=== PATIENT | male | born 1975 | race Caucasian/White ===

== ENCOUNTER 2022-11-01 11:56 | Emergency (ER) | payer OTHER, SELFPAY ==
--- NOTE | ~2022-11-01 | XR_ITS ---
EXAMINATION: XR chest 1V portable DATE: 11/01/2022 12:45 INDICATION: Cough. TECHNIQUE: A single frontal view of the chest was obtained. COMPARISON: Chest 2 views 01/06/2018 FINDINGS: The chest demonstrates clear lungs without pneumonia, pleural effusion, or pneumothorax. Th e heart size is normal. There is an electronic device in right chest with electrode in right neck. IMPRESSION: 1. No acute cardiopulmonary disease. Reviewed, dictated and finalized at location A.
[2022-11-01 12:08] VITALS: BP 139/96; PULSE 88; RESP 15; TEMP 37.1; O2SAT 96
--- NOTE | 2022-11-01 12:16 | ECG_ITS ---
Measurements Intervals [place] Rate: 91 P: 28 WA: 164 QRS: -2 QRSD: 82 T: 30 QT: 347 QTc: 427 Interpretive Statements SINUS RHYTHM WITH SINUS ARRHYTHMIA NONSPECIFIC T-WAVE ABNORMALITY ABNORMAL ECG NO PREVIOUS ECG AVAILABLE FOR COMPARISON Electronically Signed On 11-01-2022 13:54:22 CDT by Daryl York M.D.
--- NOTE | 2022-11-01 12:25 | ED.URI ---
HPI - URI/Sore Throat General Chief Complaint: Upper Respiratory Infection Stated Complaint: cough/congestion/WATERS/ dyspnea Time Seen by Provider: 11/01/22 12:06 Source: patient, RN notes reviewed and old records reviewed Mode of arrival: ambulatory Limitations: no limitations History of Present Illness HPI Narrative: This is a 47 year old male with history of PTSD, and sleep apnea who presents for evaluation of viral symptoms. He started feeling sick on Sunday. He reports developing mild cough, body ache, congestion and chills. He developed nausea, vomiting and headache yesterday. His last episode of emesis was 3 am this morning, and he has been able to drink water afterwards. He denies diarrhea, abdominal pain or fever. He has pain all over and chest pain only with coughing. He states his cough is getting worse. He is taking mucinex, tesselon perles and tylenol for his symptoms, and his last dose of tylenol was at 7 am. [facility] of [facility]. Related Data Allergies Allergy/AdvReac Type Severity Reaction Status Date / Time No Known Allergies Allergy Unknown Verified 11/01/22 12:30 Review of Systems Constitutional: Constitutional: Reports chills and Denies weakness ENT: Reports otalgia, Reports nasal congestion and Reports sinus pain Cardiovascular: Cardiovascular: Denies syncope, Denies rapid heart rate, Denies irregular heart rhythm, Denies leg edema and Reports dyspnea Respiratory: Respiratory: Reports chest congestion, Reports cough, Denies hemoptysis, Reports excessive phlegm production and Denies dyspnea Gastrointestinal: Gastrointestinal: Denies abdominal pain, Denies hematochezia, Denies diarrhea, Reports nausea and Reports vomiting Genitourinary: Genitourinary: Denies hematuria, Denies dysuria, Denies penile discharge and Denies testicular pain Musculoskeletal: Musculoskeletal: Reports myalgias, Denies joint swelling, Denies loss of height and Denies muscle weakness Neurologic: Denies syncope, Reports headache(s), Denies focal weakness and Denies weakness PMFSH Past Medical History Medical History (Updated 11/01/22 @ 13:57 by Camilla Gold MD) PTSD (post-traumatic stress disorder) Sleep apnea Social History Social History (Updated 11/01/22 @ 12:32 by Camilla Gold MD) Smoking status: Former smoker Exam Const: General: alert and ill appearing; No no acute distress, confusion or diaphoretic Nutritional Appearance: well nourished Orientation/consciousness: patient oriented x3 Limitations: no limitations HENMT: Head: normal to inspection Ears: external ears normal and TM's normal bilaterally Face and sinus: normal facial exam Mouth: Yes Normal oral and palatal mucosa present Teeth and gingiva: dentition normal and abnormal tooth and associated gingiva Throat: posterior oropharynx normal and uvula midline Eyes: EOM: EOMs intact bilaterally Chest: Chest palpation & inspection: normal inspection of the chest Resp: Effort & Inspection: normal respiratory effort Auscultation: clear to auscultation bilaterally Cardio: Rate: regular rate Rhythm: regular rhythm Heart sounds: no murmurs GI: GI Palp: Yes Soft to palpation, No Tenderness to palpation present (GI), No Guarding due to palpation present (GI) and No Rigid due to palpation Auscultation: normal bowel sounds Back/Spine/Pelvis: Back: no CVA tenderness Skin: General skin exam: normal color Rashes: no rashes Wounds: no wounds Neuro: General: patient oriented x3 and CN's II-XI intact bilaterally Cranial nerves: Yes Nystagmus not present Speech: normal speech Gait exam (Neuro): Normal gait present Extrem: General: normal to inspection Psych: Mental Status: mental status grossly normal Affect: normal affect Attitude: cooperative Course Reevaluation(s) Reevaluation #1: PAtient states he feels better and his cough has improved. He is currently receiving IV fluid
[2022-11-01 12:34] LABS: Basophils Percent Auto 0.5 % (0.2-1.2); Eosinophils Absolute Auto 0.2 K/mm3 (0-0.3); Eosinophils Percent Auto 2.1 % (0-4.4); Hematocrit 44.3 % (42.0-52.0); Hemoglobin 14.8 g/dL (14.0-18.0); Immature Granulocyte Absolute 0.03 K/mm3 (0.00-0.031); Immature Granulocyte Percent A 0.4 % (0-0.5); Lymphocytes Absolute Auto 2.43 K/mm3 (0.9-3.2); Lymphocytes Percent Auto 33.3 % (18.3-44.2); Mean Corpuscular HGB Conc 33.4 g/dl (32-36); Mean Corpuscular Volume 86.9 fl (80-100); Mean Platelet Volume 11.1 fl (7.4-10.4); Monocytes Absolute Auto 0.6 K/mm3 (0.1-0.6); Monocytes Percent Auto 8.8 % (2.6-8.5); Neutrophils Percent Auto 54.9 % (45.5-73.1); Platelet Count Result 266 k/mm3 (150-375); Red Cell Distribution Width 13.4 % (11.5-14.5); White Blood Count 7.3 K/mm3 (4.5-10.0)
[2022-11-01] MEDS: KETOROLAC 30 MG/ML VIAL (*BKC) IV PUSH (12:36)
[2022-11-01] MEDS: diphenhydrAMINE HCl INJ 50 MG/ML VIAL 25 MG IV PUSH (12:36)
[2022-11-01] MEDS: METOCLOPRAMIDE HCL INJ 10 MG/2 ML VIAL IV PUSH (12:36)
[2022-11-01] MEDS: LACTATED RINGERS 1,000 ML 999 ML IV CONT (12:37)
[2022-11-01 12:44] LABS: Alanine Aminotransferase 41 U/L (6-50); Albumin Level 4.8 g/dL (3.5-5.1); Alkaline Phosphatase 65 U/L (38-126); Anion Gap 10 mmol/L (8-16); Aspartate Amino Transferase 33 U/L (17-59); Bilirubin,Total 0.4 mg/dL (0.2-1.3); Blood Urea Nitrogen 12 mg/dL (9-20); Calcium 8.8 mg/dL (8.4-10.2); Carbon Dioxide 24 mmol/L (22-30); Chloride 109 mmol/L (98-107); Estimated CRCL calculation 103 ml/min; Estimated Glomerular Filt Rate > 60; Glucose 111 mg/dL (65-110); Lactic Acid Reflex 1.7 mmol/L (0.7-2.0); Partial Thromboplastin Time 28.4 SECONDS (22.3-36.8); Potassium 4.1 mmol/L (3.4-5.0); Prothrombin Time 12.7 Seconds (11.1-14.7); Sodium 143 mmol/L (137-145)
[2022-11-01 13:10] LABS: Influenza A QL RT-PCR Negative (Negative); Influenza B QL RT-PCR Negative (Negative); RSV RNA, RT-PCR Negative (Negative); SARS-CoV-2 RNA PCR Negative
[2022-11-01] MEDS: ALBUTEROL SULFATE (*SP) AEROSOL 1 PUFF 2 PUFF INHALATION (13:42)
[2022-11-01 14:07] VITALS: BP 125/88; PULSE 77; RESP 15; O2SAT 97
== END 2022-11-01 15:07 | disposition home or self-care (01) ==
PROVIDERS: Emergency Provider General Practice; PCP Family Medicine
DX: B34.9 Viral infection, unspecified (principal); E86.0 Dehydration; Z20.822 Contact with and (suspected) exposure to COVID-19; F43.10 Post-traumatic stress disorder, unspecified; G47.30 Sleep apnea, unspecified; Z87.891 Personal history of nicotine dependence; R94.31 Abnormal electrocardiogram [ECG] [EKG]
CPT/HCPCS: 36415; 71045; 80053; 83605; 85025; 85610; 85730; 87637; 93005; 94664; 96361; 96374; 96375; 99284; A9270; J1200; J1885; J2765; J7120

== ENCOUNTER 2023-04-29 16:57 | Emergency (ER) | payer OTHER, SELFPAY ==
--- NOTE | ~2023-04-29 | XR_ITS ---
EXAM: XR shoulder RT min 2V DATE: 04/29/2023 18:50 HISTORY: R shoulder pain s/p [id number] . COMPARISON: None available. FINDINGS: Normal mineralization. No fracture or dislocation. No lytic or blastic lesion. Mild degene rative change in the glenohumeral joint. No erosion or periosteal change. Soft tissues within normal limits. IMPRESSION: No acute osseous finding in the right shoulder. Reviewed, dictated and finalized at location K.
--- NOTE | ~2023-04-29 | CT_ITS ---
EXAMINATION: CT brain wo con DATE: 04/29/2023 18:40 INDICATION: fall 10 days ago, [place] . TECHNIQUE: Computed tomography (CT) of the head was performed without intravenous contrast. The mA wa s adjusted according to patient size. Iterative reconstruction technique was employed. The dose-lengt h product was 605.33 mGy-cm. COMPARISON: 09/28/2015. FINDINGS: No acute intracranial hemorrhage or extra-axial fluid collection. No hydrocephalus, mass, or herniation. No acute ischemic infarct. Unremarkable dural venous sinus attenuation. No acute osseous abnormality. The aerated spaces are clear. IMPRESSION: No acute intracranial process. Reviewed, dictated and finalized at location K.
--- NOTE | ~2023-04-29 | CT_ITS ---
EXAMINATION: CT thoracic spine wo con DATE: 04/29/2023 18:40 INDICATION: fall, injury 10d, mid and rt upper back pain . TECHNIQUE: Computed tomography (CT) of the thoracic spine was performed without intravenous contrast. Automated exposure control and iterative reconstruction technique were employed. The dose-length pro duct was 1433.52 mGy-cm. COMPARISON: None FINDINGS: Normal vertebral body alignment. Disc spaces maintained. No significant degenerative change . Facets are aligned. No fracture or dislocation. IMPRESSION: No acute fracture or traumatic malalignment detected in the thoracic spine Reviewed, dictated and finalized at location K.
--- NOTE | ~2023-04-29 | CT_ITS ---
EXAMINATION: CT cervical spine wo con DATE: 04/29/2023 18:40 INDICATION: fall 10d ago, [place], neck pain, down RUE TECHNIQUE: Computed tomography (CT) of the cervical spine was performed without intravenous contrast. Automated exposure control and iterative reconstruction technique were employed. The dose-length pro duct was 452.14 mGy-cm. COMPARISON: None. FINDINGS: Vertebral Body Alignment: Intact. Craniocervical and atlantoaxial alignment: No significant degenerative change. Alignment intact. Osseous structures/fracture: No evidence of a lytic or blastic process in the visualized spine. No e vidence of acute fracture. Cervical soft tissues: The paraspinal soft tissues planes are maintained. Degenerative changes: No significant degenerative changes. IMPRESSION: No acute fracture or traumatic malalignment in the cervical spine. Reviewed, dictated and finalized at location K.
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
[2023-04-29 16:59] VITALS: BP 146/96; PULSE 84; RESP 18; TEMP 36.6; O2SAT 99
[2023-04-29] MEDS: ACETAMINOPHEN 500 MG TABLET 1000 MG PO (18:03)
[2023-04-29] MEDS: CYCLOBENZAPRINE HCL 5 MG TABLET PO (18:04)
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
[2023-04-29] MEDS: KETOROLAC (*BKC) 60 MG/2 ML VIAL IM (19:34)
--- NOTE | 2023-04-29 19:36 | PC.NURSE ---
60mg IM toradol injection given in the R ventrogluteal muscle.
== END 2023-04-29 20:29 | disposition home or self-care (01) ==
PROVIDERS: Emergency Provider Physician Assistant; PCP Family Medicine
DX: S46.911A Strain of unspecified muscle, fascia and tendon at shoulder and upper arm level, right arm, initial encounter (principal); S29.012A Strain of muscle and tendon of back wall of thorax, initial encounter; S09.90XA Unspecified injury of head, initial encounter; M54.12 Radiculopathy, cervical region; G47.30 Sleep apnea, unspecified; Z87.891 Personal history of nicotine dependence; W01.118A Fall on same level from slipping, tripping and stumbling with subsequent striking against other sharp object, initial encounter
CPT/HCPCS: 70450; 71046; 71110; 72125; 72128; 73030; 96372; 99284; A9270; J1885